=== PATIENT | female | born 1950 | race Caucasian/White ===

== ENCOUNTER 2025-05-16 06:17 | Day surgery (SDC) | payer MEDICARE, SELFPAY | END 2025-05-16 15:02 | disposition home or self-care (01) | LOC: GI 06:17 | PROVIDERS: ATTENDING PHYSICIAN Internal Medicine; FAMILY PHYSICIAN Family Medicine | DX: K52.9 Noninfective gastroenteritis and colitis, unspecified (principal); K57.30 Diverticulosis of large intestine without perforation or abscess without bleeding; K64.8 Other hemorrhoids | CPT/HCPCS: 45380; 88305 ==